=== PATIENT | male | born 1995 | race Two or more races ===

== ENCOUNTER 2023-11-14 05:40 | Emergency (ER) | payer SELFPAY ==
[2023-11-14] MEDS: Sodium Chloride 0.9% 10 ML Syringe FLUSH PRN (05:51)
[2023-11-14] MEDS: Sodium Chloride 0.9% 2.5 ML Syringe FLUSH PRN (05:52)
[2023-11-14 05:57] LABS: BASOPHILS ABSOLUTE AUTO 0.03 K/uL (0.00-0.20); BASOPHILS PERCENT AUTO 0.4 % (0.0-1.0); EOSINOPHILS ABSOLUTE AUTO 0.05 K/uL (0.00-0.45); EOSINOPHILS PERCENT AUTO 0.7 % (0.0-6.0); HEMATOCRIT 41.1 % (42.0-52.0); HEMOGLOBIN 14.5 g/dL (14.0-18.0); IMMATURE GRAN ABSOLUTE AUTO 0.01 K/uL (0.00-0.05); IMMATURE GRAN PERCENT AUTO 0.1 % (0.0-0.4); LYMPHOCYTES ABSOLUTE AUTO 2.88 K/uL (1.00-4.80); LYMPHOCYTES PERCENT AUTO 41.2 % (24.0-44.0); MEAN CORPUSCULAR HEMOGLOBIN 29.4 pg (28.0-32.0); MEAN CORPUSCULAR HGB CONC 35.3 g/dL (32.0-36.0); MEAN CORPUSCULAR VOLUME 83.2 fL (83.0-99.0); MEAN PLATELET VOLUME 10.6 fL (9.4-12.4); MONOCYTES ABSOLUTE AUTO 0.38 K/uL (0.00-0.80); MONOCYTES PERCENT AUTO 5.4 % (0.0-8.0); NEUTROPHILS ABSOLUTE AUTO 3.64 K/uL (1.80-7.70); NEUTROPHILS PERCENT AUTO 52.2 % (41.0-71.0); PLATELET COUNT,PLT 277 K/uL (150-400); RED BLOOD CELL COUNT 4.94 M/uL (4.52-5.90); WHITE BLOOD CELL COUNT,WBC 6.99 K/uL (3.9-11.3)
[2023-11-14 06:11] LABS: A/G RATIO 1.2 (0.9-1.6); ALANINE AMINOTRANSFERASE,ALT 24 IU/L (14-63); ALBUMIN 4.1 g/dL (3.4-5.0); ALKALINE PHOSPHATASE 121 U/L (46-116); ASPARTATE AMNIOTRANSFERASE,AST 21 IU/L (15-37); BILIRUBIN TOTAL 0.3 mg/dL (0.2-1.0); BLOOD UREA NITROGEN,BUN 18 mg/dL (7.0-18.0); CALCIUM 8.7 mg/dL (8.5-10.1); CARBON DIOXIDE,CO2 16.6 mmol/L (21.0-32.0); CHLORIDE,CL 101 mmol/L (98-107); CREATININE 1.8 mg/dL (0.8-1.3); EST CRCL DRUG DOSING (CG) 65.86 mL/min; ETHANOL BLOOD MEDICAL <3 mg/dL; GLUCOSE RANDOM 162 mg/dL (74-106); MAGNESIUM 1.6 mg/dL (1.8-2.4); POTASSIUM,K 3.2 mmol/L (3.5-5.1); PROTEIN TOTAL,TP 7.5 g/dL (6.4-8.2); SODIUM,NA 137 mmol/L (136-148)
[2023-11-14 06:12] LABS: ESTIMATED GFR 51 mL/min (>60)
[2023-11-14] MEDS: Magnesium Sulfate/Water 2 GM in Premix Bag 1 BAG IV ONE (06:25)
[2023-11-14] MEDS: Potassium Chloride 10% 20 MEQ/15 ML Soln 15 ML UD Cup PO ONE (06:26)
[2023-11-14] MEDS: Sodium Chloride 0.9% 1,000 ML IV STA (06:26)
[2023-11-14 06:59] LABS: BASE EXCESS VENOUS -4.5 (-2.0-3.0); PH,VENOUS 7.47 (7.31-7.41)
[2023-11-14] MEDS: Lactated Ringers 1,000 ML IV STA (07:12)
[2023-11-14 08:42] LABS: CALCIUM 8.6 mg/dL (8.5-10.1); CARBON DIOXIDE,CO2 20.5 mmol/L (21.0-32.0); CREATININE 1.5 mg/dL (0.8-1.3); EST CRCL DRUG DOSING (CG) 79.04 mL/min; POTASSIUM,K 4.3 mmol/L (3.5-5.1)
[2023-11-14] MEDS: amLODIPine 5 MG Tab PO ONE (08:55)
== END 2023-11-14 09:08 | disposition home or self-care (01) ==
LOC: MW.ED 05:40
DX: E87.6 Hypokalemia (principal); E83.42 Hypomagnesemia; R00.0 Tachycardia, unspecified; F10.90 Alcohol use, unspecified, uncomplicated; F15.90 Other stimulant use, unspecified, uncomplicated; Z88.0 Allergy status to penicillin
CPT/HCPCS: 36415; 71045; 80048; 80053; 80307; 82550; 82803; 83735; 84484; 85025; 85379; 93005; 96365; 96366; 99285; A9270; J3475; J3490; J7030; J7120; 93010; 99283